=== PATIENT | male | born 2000 | race Caucasian/White ===

== ENCOUNTER 2022-07-13 07:32 | Outpatient (CLI) | payer OTHER, SELFPAY ==
--- NOTE | ~2022-07-13 | MR_ITS ---
MRI of the left elbow CLINICAL HISTORY: Pain TECHNIQUE: Proton-density and proton-density fat-sat imaging was performed in the axial, coronal, and sagittal planes. FINDINGS: Ulnar collateral ligament is intact. Radial collateral ligament is probably intact. Lateral ulnar collateral ligament intact. There is a small displaced fracture of the posterior aspect of the lateral epicondyle of the humerus, best seen on axial views. Fracture fragment is displaced laterally by approximately 1 cm. Radiocapit ellar alignment is preserved. Ulnar humeral alignment is otherwise preserved. No other fracture seen. Small elbow joint effusion present. Biceps, brachialis, and triceps tendons are intact. No muscle atrophy or edema. IMPRESSION: Small displaced fracture of the posterior aspect of the lateral epicondyle of the humerus, as detaile d above. Associated small elbow joint effusion. Reviewed, dictated and finalized at [facility]. 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 Associated small elbow joint effusion.
== END 2022-07-13 07:33 | disposition home or self-care (01) ==
DX: S42.432A Displaced fracture (avulsion) of lateral epicondyle of left humerus, initial encounter for closed fracture (principal)
CPT/HCPCS: 73221

== ENCOUNTER 2022-12-10 20:43 | Emergency (ER) | payer OTHER, SELFPAY ==
[2022-12-10 20:44] VITALS: BP 126/83; PULSE 80; RESP 18; TEMP 37.5; O2SAT 100
[2022-12-10] MEDS: TOBRAMYCIN SULFATE 0.3% OPHTH SOLN 5 ML 2 DROP EACH EYE (23:04)
[2022-12-10 23:06] VITALS: BP 133/75; PULSE 74; RESP 18; TEMP 37.1; O2SAT 98
--- NOTE | 2022-12-10 23:11 | ED.EYEPROB ---
HPI - Eye Problem General Chief complaint: Eye Problems Stated complaint: Eye Problems Source: patient Mode of arrival: ambulatory Limitations: no limitations History of Present Illness HPI Narrative: Complains of bilateral eye irritation left worse than the right This started yesterday. He noticed a discharge in the eye tonight conjunctiva red. He denies any foreign body sensation. Denies any problems with his vision. Denies any trauma. Patient denies any fever cough sore throat runny nose pain problems eating drinking stooling or voiding rash or itching swelling lumps or bumps bleeding or bruising or any other complaints. Related Data Home Medications Medication Instructions Recorded Confirmed No Home Medications 12/10/22 12/10/22 Allergies Allergy/AdvReac Type Severity Reaction Status Date / Time amoxicillin Allergy Verified 08/16/12 18:43 Exam Narrative: white male appears in no apparent distress eyes conjunctiva are injected there is no foreign body in his eyes extraocular movements are intact. Eyelids were everted there was no foreign body seen. Visual acuity was checked as per nurse's notes. Lungs are clear heart is regular rate rhythm without murmurs gallops rubs. Course Vital Signs Vital signs: Vital Signs Temperature 37.5 C 12/10/22 20:44 Pulse Rate 80 12/10/22 20:44 Respiratory Rate 18 12/10/22 20:44 Blood Pressure 126/83 12/10/22 20:44 Pulse Oximetry 100 12/10/22 20:44 Oxygen Delivery Room Air 12/10/22 20:44 Temperature 37.1 C 12/10/22 23:06 Pulse Rate 74 12/10/22 23:06 Respiratory Rate 18 12/10/22 23:06 Blood Pressure 133/75 12/10/22 23:06 Pulse Oximetry 98 12/10/22 23:06 Oxygen Delivery Room Air 12/10/22 23:06 MDM - Eye Problem MDM Narrative Medical decision making narrative: Patient was placed in room 4 with his mother. History and physical were performed. And 2 drops of tobramycin ophthalmic solution 3% were placed in each eye Independent Historian: ? mother Differential Dx includes but not limited to:? conjunctivitis foreign body Medications were Reviewed:? ?? meds reviewed Independently Interpreted by me:? ?? External Source Review:? ? Social Situation Impacting Patients Care:? ? Shared decision Making:?? evaluation was discussed with patient and mother and all questions were asked and answered and they agreed upon the plan which was take the tobramycin ophthalmic drops 2 drops 4 times a day for 10 days return if he got worse or develops any new symptoms. DISCHARGE DIAGNOSIS:? ? Conjunctivitis bacterial DISPOSITION:? ? discharge home CONDITION AT DISCHARGE:? stable Discharge Plan Discharge Clinical Impression: Bacterial conjunctivitis Patient Disposition: Home, Self-Care Condition: Stable Instructions: Antibiotic Form, Conjunctivitis (ED) Additional Instructions: use the tobramycin eye drops 0.3% 2 drops 4 times a day for 10 days both eyes. Return if you get worse or develops any new symptoms. Wash her hands before and after putting the drops in. . Prescriptions: No Action No Home Medications Follow-up/Referrals: Addy Coemr MD [Primary Care Provider] - Time of Disposition: 23:10
== END 2022-12-10 23:14 | disposition home or self-care (01) ==
PROVIDERS: Emergency Provider Emergency Medicine; PCP Pediatrics
DX: H10.9 Unspecified conjunctivitis (principal)
CPT/HCPCS: 99282

== ENCOUNTER 2024-05-02 16:41 | Observation (INO) | payer OTHER, SELFPAY ==
--- NOTE | ~2024-05-02 | XR_ITS ---
XR chest 2V Ordering provider: Laura Webster MD History: 24 years Male with . cough/congestion x2 weeks . Comparison: None. FINDINGS: MEDIASTINUM: The cardiac silhouette is not enlarged. LUNGS: No effusions or pneumothorax. Opacification in the lingula area with loss of silhouette of the cardiac apex. Prominent markings in the left perihilar area and left lower lobe area. OTHER: No free air under the diaphragm. IMPRESSION: Pneumonia in the lingula area. Reviewed, dictated and finalized at location A.
[2024-05-02 16:42] VITALS: BP 123/86; PULSE 100; RESP 18; TEMP 36.4; O2SAT 97
--- NOTE | 2024-05-02 16:46 | ED.GENADULT ---
HPI - General Adult General Chief complaint: Upper Respiratory Infection Stated complaint: not feeling well Time Seen by Provider: 05/02/24 16:45 Source: patient and family Mode of arrival: ambulatory History of Present Illness HPI narrative: PATIENT HAD UPPER RESPIRATORY VIRAL INFECTION SYMPTOMS INCLUDING RUNNY NOSE, SORE THROAT, BODY ACHES, POSTNASAL DISCHARGE 14 DAYS AGO. STARTED ON CEFDINIR TWICE A DAY FOR 10 DAYS, FINISHED A COURSE 4 DAYS AGO. PATIENT STARTED HAVING FEVER AGAIN, DRY COUGH, GENERALLY WEAK , WITH SHORTNESS OF BREATH Related Data Home Medications Medication Instructions Recorded Confirmed No Home Medications 12/10/22 12/10/22 Allergies Allergy/AdvReac Type Severity Reaction Status Date / Time amoxicillin Allergy Verified 08/16/12 18:43 Review of Systems Review of Systems: All systems reviewed & are unremarkable except as noted in HPI and below Exam Narrative: GENERAL APPEARANCE: WELL-DEVELOPED, WELL-NOURISHED INTERMITTENT PERSISTENT COUGH SKIN: NORMAL COLOR HEAD: NORMOCEPHALIC, NONTRAUMATIC EYES: CLEAR CONJUNCTIVA ENT: OROPHARYNX NORMAL, EARS NORMAL, NOSE NORMAL NECK: SUPPLE, NONTENDER CHEST AND RESPIRATORY: AIRWAY PATENT, NO RESPIRATORY DISTRESS, NO ACCESSORY MUSCLE USE, SLIGHT DIMINUTION OF AIR ENTRY RIGHT BASE HEART: REGULAR RATE/RHYTHM ABDOMEN: SOFT, NONTENDER, NO ORGANOMEGALY, QUIET BOWEL SOUNDS VASCULAR: NORMAL PERIPHERAL PULSES, NORMAL CAPILLARY REFILL. 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 TESTED, NO GROSS MOTOR DEFICIT Course Vital Signs Vital signs: Vital Signs Temperature 36.4 C L 05/02/24 16:42 Pulse Rate 100 05/02/24 16:42 Respiratory Rate 18 05/02/24 16:42 Blood Pressure 123/86 05/02/24 16:42 Pulse Oximetry 97 05/02/24 16:42 Oxygen Delivery Room Air 05/02/24 16:42 Temperature 36.4 C L 05/02/24 16:42 Pulse Rate 100 05/02/24 16:42 Respiratory Rate 18 05/02/24 16:42 Blood Pressure 123/86 05/02/24 16:42 Pulse Oximetry 97 05/02/24 16:42 Oxygen Delivery Room Air 05/02/24 16:42 Medical Decision Making [facility] Narrative Medical decision making narrative: PATIENT CAME TO THE ED BY PRIVATE CAR WITH COUGHING AND HER RESPIRATORY DISTRESS PATIENT FINISH A COURSE OF CEFDINIR 10 DAYS 4 DAYS AGO. VITAL SIGNS ARE STABLE PHYSICAL EXAMINATION SHOWED SLIGHT LABORED BREATHING, DIMINUTION OF AIR ENTRY RIGHT LOWER BASE DIFFERENTIAL DIAGNOSIS UPPER RESPIRATORY VIRAL INFECTION, SECONDARY BACTERIAL INFECTION CAUSING BRONCHITIS/ PNEUMONIA BLOOD WORKUP TODAY SHOWED WBC 11.4, C-REACTIVE PROTEIN 9.7 CHEST X-RAY SHOWED PNEUMONIA ROCEPHIN AND SYSTEM MYCIN IV STARTED ADMIT TO HOSPITALIST DIAGNOSIS PNEUMONIA, FAILED OUTPATIENT TREATMENT Vital Signs Vital Signs: Vital Signs Temperature 36.4 C L 05/02/24 16:42 Pulse Rate 100 05/02/24 16:42 Respiratory Rate 18 05/02/24 16:42 Blood Pressure 123/86 05/02/24 16:42 Pulse Oximetry 97 05/02/24 16:42 Oxygen Delivery Room Air 05/02/24 16:42 Temperature 36.4 C L 05/02/24 16:42 Pulse Rate 100 05/02/24 16:42 Respiratory Rate 18 05/02/24 16:42 Blood Pressure 123/86 05/02/24 16:42 Pulse Oximetry 97 05/02/24 16:42 Oxygen Delivery Room Air 05/02/24 16:42 Lab Data 05/02/24 17:15 05/02/24 17:15 Labs: Lab Results 05/02/24 05/02/24 Range/Units 16:47 17:15 WBC 11.4 H (4.8-10.8) K/mm3 RBC 4.64 L (4.70-6.10) M/mm3 Hgb 14.5 (14.0-18.0) g/dL Hct 43.0 (40.0-54.0) % MCV 92.7 (78.0-102.0) fL MCH 31.3 H (27.0-31.0) pg MCHC 33.7 (32-36) g/dL RDW 12.2 (1
--- NOTE | 2024-05-02 16:59 | PC.NURSE ---
covid swab sent to lab
[2024-05-02 17:37] LABS: Basophils Absolute Auto 0.02 K/mm3 (0.00-0.10); Basophils Percent Auto 0.2 % (0.0-1.0); Eosinophils Absolute Auto 0.11 K/mm3 (0.02-0.50); Hemoglobin 14.5 g/dL (14.0-18.0); Immature Granulocyte Absolute 0.07 K/mm3 (0.00-0.00); Immature Granulocyte Percent A 0.6 % (0.0-0.0); Lymphocytes Absolute Auto 1.85 K/mm3 (1.10-4.50); Lymphocytes Percent Auto 16.2 % (18.0-42.0); Mean Corpuscular HGB Conc 33.7 g/dL (32-36); Mean Corpuscular Hemoglobin 31.3 pg (27.0-31.0); Mean Corpuscular Volume 92.7 fL (78.0-102.0); Mean Platelet Volume 9.2 fl (8.7-11.0); Monocytes Absolute Auto 1.02 K/mm3 (0.10-0.90); Monocytes Percent Auto 8.9 % (2.0-11.0); Neutrophils Absolute Auto 8.34 K/mm3 (1.70-7.20); Neutrophils Percent Auto 73.1 % (50.0-70.0); Platelet Count Result 409 K/mm3 (150-420); Red Blood Count 4.64 M/mm3 (4.70-6.10); Red Cell Distribution Width 12.2 % (11.6-14.4); White Blood Count 11.4 K/mm3 (4.8-10.8)
[2024-05-02 17:43] LABS: Influenza A QL RT-PCR Negative (Negative); Influenza B QL RT-PCR Negative (Negative); RSV RNA, RT-PCR Negative (Negative); SARS-CoV-2 RNA PCR Negative (Negative)
[2024-05-02 17:51] LABS: Alanine Aminotransferase 23 U/L (16-63); Albumin Level 3.2 g/dL (3.4-5.0); Alkaline Phosphatase 110 U/L (46-116); Anion Gap 11 mmol/L (4-12); Aspartate Amino Transferase 17 U/L (15-37); Bilirubin,Total 0.5 mg/dL (0.00-1.00); Blood Urea Nitrogen 8 mg/dL (7-18); CRP 9.7 mg/dL (0.0-0.9); Calcium 9.1 mg/dL (8.5-10.1); Carbon Dioxide 28 mmol/L (21-32); Chloride 99 mmol/L (98-108); Estimated CRCL calculation 84 ml/min; Estimated Glomerular Filt Rate > 60; Glucose 94 mg/dL (70-99); Osmolality Calculated 284 mOsm/kg (285-295); Potassium 3.9 mmol/L (3.5-5.1); Sodium 138 mmol/L (136-145); Total Protein 8.6 g/dL (6.4-8.2)
[2024-05-02 18:03] VITALS: BP 138/89; PULSE 94; RESP 18; TEMP 37.1; O2SAT 99
[2024-05-02 18:07] LABS: Lactic Acid Reflex 0.7 mmol/L (0.4-2.0)
[2024-05-02] MEDS: AZITHROMYCIN 500 MG/NS 250 ML 500 MG/250 ML BAG 250 MG IVPB (18:07)
[2024-05-02 18:46] VITALS: BP 134/88; PULSE 90; RESP 18; TEMP 36.6; O2SAT 99
[2024-05-02 18:47] VITALS: BMI 23.2
--- NOTE | 2024-05-02 18:53 | ADMGEN ---
This patient, Vasiliy Hernandez, was admitted to 2nd Floor Room 210-1 @1820. Patient/family oriented to hospital policies and general routines including ID bracelet, bed and alarms, visiting hours, pain management, procedures, bathroom and other care routines, personal items, smoking policy, room service/diet, and visiting hours. Information on how to activate the Rapid Response Team has been discussed. Patient/Family are encouraged to report perceived risks to care and to ask questions if they do not understand what they are told or what they should do. claims he has been sob and not feeling well for over week. went to walk in clinic and was given oral abt and finished the tx. has been having night fevers and coughing. just feels miserable
[2024-05-02 19:15] VITALS: BMI 23.2
[2024-05-03] VITALS: BP 126/83; PULSE 93; RESP 18; TEMP 37; O2SAT 97
[2024-05-03 08:00] VITALS: BP 125/75; PULSE 97; TEMP 36.8; O2SAT 94
[2024-05-03 08:14] LABS: Basophils Absolute Auto 0.03 K/mm3 (0.00-0.10); Basophils Percent Auto 0.3 % (0.0-1.0); Eosinophils Absolute Auto 0.15 K/mm3 (0.02-0.50); Eosinophils Percent Auto 1.7 % (1.0-6.0); Hematocrit 42.2 % (40.0-54.0); Hemoglobin 13.8 g/dL (14.0-18.0); Immature Granulocyte Absolute 0.08 K/mm3 (0.00-0.00); Immature Granulocyte Percent A 0.9 % (0.0-0.0); Lymphocytes Absolute Auto 1.87 K/mm3 (1.10-4.50); Lymphocytes Percent Auto 20.6 % (18.0-42.0); Mean Corpuscular HGB Conc 32.7 g/dL (32-36); Mean Corpuscular Hemoglobin 30.5 pg (27.0-31.0); Mean Corpuscular Volume 93.4 fL (78.0-102.0); Mean Platelet Volume 9.3 fl (8.7-11.0); Monocytes Absolute Auto 0.93 K/mm3 (0.10-0.90); Monocytes Percent Auto 10.2 % (2.0-11.0); Neutrophils Absolute Auto 6.02 K/mm3 (1.70-7.20); Neutrophils Percent Auto 66.3 % (50.0-70.0); Platelet Count Result 426 K/mm3 (150-420); Red Blood Count 4.52 M/mm3 (4.70-6.10); Red Cell Distribution Width 12.2 % (11.6-14.4); White Blood Count 9.1 K/mm3 (4.8-10.8)
[2024-05-03 08:43] LABS: Alanine Aminotransferase 24 U/L (16-63); Albumin Level 2.8 g/dL (3.4-5.0); Alkaline Phosphatase 104 U/L (46-116); Anion Gap 8 mmol/L (4-12); Aspartate Amino Transferase 15 U/L (15-37); Bilirubin,Total 0.4 mg/dL (0.00-1.00); Blood Urea Nitrogen 9 mg/dL (7-18); Calcium 9.1 mg/dL (8.5-10.1); Carbon Dioxide 28 mmol/L (21-32); Chloride 101 mmol/L (98-108); Estimated CRCL calculation 80 ml/min; Estimated Glomerular Filt Rate > 60; Glucose 89 mg/dL (70-99); Osmolality Calculated 281 mOsm/kg (285-295); Potassium 4.3 mmol/L (3.5-5.1); Sodium 137 mmol/L (136-145)
--- NOTE | 2024-05-03 08:53 | PM.SD2 ---
Same Day Admit/Disch: HPI History of Present Illness Chief complaint: PNEUMONIA Narrative: Vasiliy Hernandez is a 24 year old male with no significant past medical history. 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 He reports that in the last 2 weeks he was having some chest congestion, shortness a breath, fever of 102and was seen at an urgent care where he was diagnosed with an ear infection and started on cefdinir. He completed treatment and the following day developed worsening chest congestion and shortness of breath with productive sputum that is pale green in color. He noticed that when working out or going to practice he was still having difficulty taking deep breaths without chest discomfort. He was home for the weekend and felt that he should be evaluated at the emergency room. On exam today he appears in no acute distress. He does state that he has chest discomfort with deep inspiration but his shortness of breath is improved and his cough seems to have improved. Overall he seems to feel better today than when he 1st presented yesterday. In the emergency room labs were fairly unremarkable other than a white blood cell count 11.4 and CRP 9.7. quad viral screen was negative. a chest x-ray showed pneumonia. Blood cultures were obtained and are pending. He was started on Rocephin and azithromycin and admitted to the floor for observation. Labs today show an improved white blood cell count of 9.1. vital signs are stable. He is feeling well and is anxious to discharge home. 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 he drinks occasionally and denies tobacco use. No illicit drug use. He designates his mother Shona Hernandez as his emergency contact. Smoking status: Never smoker Alcohol intake: current Drinks per week: 2 Substance use: former Do You Feel Safe in your Home?: Yes Lack of Transportation: No Lack of Food: Never True Current Housing: I Have Housing Concerned About Future Housing: No Difficulty Paying Gas/Electric Bills: No Difficulty Paying for Meds: No Currently Unemployed: No Education: Bachelor's Degree Difficulty w/ Childcare or Family Care: No Living arrangements: dorm student housing Occupation/Education: student Spiritual care concerns: No Same Day Admit/Disch: Med Pre-admit Medications Home Medications Medication Instructions Recorded Confirmed Type esomeprazole magnesium 20 mg 20 mg PO DAILY 05/02/24 05/02/24 History capsule,delayed 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 Pulses 2/2 Neuro: A&O x 4 Skin: Warm, dry, intact DS: Data Data Completed and Pending Labs on day of discharge: Labs from last 24 hours 05/03/24 05/02/24 05/02/24 07:54 17:15 16:47 WBC 9.1 11.4 H RBC 4.52 L 4.64 L Hgb 13.8 L 14.5 Hct 42.2 43.0 MCV 93.4 92.7 MCH 30.5 31.3 H MCHC 32.7 33.7 RDW 12.2 12.2 Plt Count 426 H 409 MPV 9.3 9.2 Immature Gran % (Auto) 0.9 H 0.
--- NOTE | 2024-05-03 10:56 | PC.NURSE ---
Pt discharged to home and self care. RN instructed pt regarding his medications, purpose, dosage, times and side effects. Pt instructed on regarding symptoms of pneumonia and when to call the doctor or return to the ER. IV removed from RAC and dressing applied.
--- NOTE | 2024-05-05 09:05 | PC.NURSE ---
discharge call back complete, doing better, cough is less, no use of inhaler, did get abx filled, no questions re dc instructions
== END 2024-05-03 10:10 | disposition home or self-care (01) ==
LOC: CHSED 17:59 → CHS2ND 18:00
PROVIDERS: Nurse Practitioner Acute Care; Admitting Provider Internal Medicine; Emergency Provider Emergency Medicine; Visit Provider Internal Medicine
DX: J18.9 Pneumonia, unspecified organism (principal); Z20.822 Contact with and (suspected) exposure to COVID-19; K21.9 Gastro-esophageal reflux disease without esophagitis; Z79.899 Other long term (current) drug therapy
CPT/HCPCS: 36415; 71046; 80053; 83605; 85025; 86140; 87040; 87637; 96365; 96366; 96367; 99285; G0378; J0456; J0696